=== PATIENT | female | born 1955 | race Caucasian/White ===

== ENCOUNTER 2025-04-29 09:17 | Outpatient (REF) | payer MEDICARE, SELFPAY ==
--- OUTSIDE RECORDS SUMMARY | 2025-04-29 09:41 | XMS_ITS | Data Portability ---
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 REVIEW OF PRIOR EXTERNAL NOTES/RESULTS, ORDERING OF TEST(S) CATEGORY 2. ASSESSMENT REQUIRING INDEPENDENT HISTORIAN(S) INCLUDE WHO THE HISTORIAN IS AND RELATION TO PT AND WHY PT IS UNABLE TO GIVE COMPLETE HISTORY ELEMENT 3: RISK (LOW) RISK OF COMPLICATIONS AND/OR MORBIDITY OR MORTALITY OF PATIENT MANAGEMENT PROVIDER MUST THOROUGHLY DOCUMENT ALL OF THE ELEMENTS COVERED Not available 04/03/2022 15:33:57 05/02/2023 05/02/2023 The patient denies little pleasure in activities they find enjoyable, feeling depressed, difficulties sleeping, feeling tired or having little energy, change in appetite, feeling guilty, overwhelmed or unmotivated. The patient denies suicidal ideation, thoughts of hurting themselves or others. Their mood is appropriate, they show good judgement and clear understanding of the conversation. They are orientated to time, place and person. They are not expressing any concerning thoughts or actions that would need further investigation and treatment for mental health. 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 MODERATE MUST MEET 2 OUT OF 3 ELEMENTS: PROBLEMS, DATA OR RISK ELEMENT 1: PROBLEMS ADDRESSED 1 OR MORE CHRONIC ILLNESS WITH EXACERBATION OR 2 OR MORE STABLE CHRONIC ILLNESSES OR 1 UNDIAGNOSED NEW PROBLEM OR 1 ACUTE ILLNESS W/SYMPTOMS OR 1 ACUTE COMPLICATED INJURY ELEMENT 2: DATA MUST MEET 1 OF 3 CATEGORIES CATEGORY 1: REVIEW OF PRIOR EXTERNAL NOTES, REVIEW OF RESULTS, ORDERING OF EACH TEST, ASSESSMENT REQUIRING INDEPENDENT HISTORIAN OR CATEGORY 2: INDEPENDENT INTERPRETATION OF TESTS BY ANOTHER PHYSICIAN OR SPECIALIST OR CATEGORY 3: DISCUSSION OF MGT OR TEST INTERPRETATION W/EXTERNAL PHYSICIAN OR SPECIALIST ELEMENT 3: RISK RISK OF COMPLICATIONS AND/OR MORBIDITY OR MORTALITY OF PATIENT MANAGEMENT PROVIDER MUST THOROUGHLY DOCUMENT EACH ELEMENT THAT IS COVERED Not available 11/14/2024 09:46:21 Plan of Treatment Reminders Order Date Submit Date Provider Last Modified By Organization Details Last Modified Time Details Appointments MEDICARE ANNUAL WELLNESS 2024 09:15A M DR SHAH Not available Not available Not available FOLLOW UP 2025 09:30A M DR SHAH Not available Not available Not available Lab HbA1c (hemoglob in A1c), blood 2024 025 [facility], [address] [place] [address], [id number], 11/14/2024 09:51:48 lipid panel, serum 2024 025 [facility], [address] [place] [address], [id number], 11/14/2024 09:51:48 CMP, serum or plasma 2024 025 [facility], [address] [place] [address], [address], 11/14/2024 09:51:48 CBC 2024 025 [email or web address], [address] [place] [address], [id number], 11/21/2024 08:41:01 vitamin D, 25-hydrox y, total, serum 2024 025 [facility], [address] [place] [address], [address], 11/14/2024 09:51:48 TSH, serum or plasma 2024 025 [facility], [address] [place] [address], [id number], 11/14/2024 09:51:48 uric acid, serum or plasma 2023 024 [facility], [place], [address], 10/24/2023 10:11:14 CMP, serum or plasma 2023 024 [facility], [place], [address], 10/24/2023 10:11:14 CBC w/ auto diff 2023 024 [facility], [place], [address], 10/24/2023 10:11:14 lipid panel, blood 2023 024 [facility], [place], [address], 10/24/2023 10:11:14 TSH + free T4, serum 2023 024 [facility], [place], [address], 10/24/2023 10:11:14 CMP, serum or plasma 2022 023 [facility], [place], [address], 05/02/2023 11:30:43 lipid panel, serum 2022 023 [facility], [place], [address], 05/02/2023 11:30:43 CBC w/ auto diff 2022 023 [facility], [place], [address], 05/02/2023 11:30:43 TSH + free T4, serum 2022 023 [facility], [place], [address], 05/02/2023 11:25:20 Referral orthopedi c surgeon referral 2022 023 [email or web address] 10 [facility], [address] [place] [address], [id number], 05/04/2023 08:19:09 Procedures None recorded. Surgeries None recorded. Imaging MRI, lumbar spine, w/o contrast 2022 023 [email or web address] 10 Not available 06/15/2023 14:06:33 Medication Orders rosuvasta tin 20 mg tablet 2022 023 [facility], [address], [place], [place], [id number], 05/02/2023 11:31:15 tramadol 50 mg tablet 2022 023 [facility], [address], [place], [place], [id number], 05/02/2023 11:33:27 lisinopri l 20 mg tablet 2022 023 [facility], [address], [place], [place], [id number], 05/02/2023 11:23:34 lorazepam 0.5 mg tablet 2022 023 [facility], [address] [facility] [address], [place], [place], [id number], 05/02/2023 11:33:24 levothyro xine 75 mcg tablet 2022 023 [facility], [address] [facility] [address], [place], [place], [id number], 05/02/2023 11:23:36 azithromy jessica 250 mg tablet 2021 022 [email or web address] [facility], [address] [place], [address], 04/29/2025 09:02:16 Patient TargetsNo targets recorded. Patient Instructions Encounter Date Encounter Id Patient Instructions Last Modified By Organization Details Last Modified Time 04/03/2022 [id number] Acute Sinusitis: Care Instructions Not available 04/03/2022 15:33:24 cough: care instructions Not available 04/03/2022 15:33:23 11/14/2024 [id number] prediabetes: car e instructions Not available 11/14/2024 09:50:28 hypothyroidism: care instructions Not available 11/14/2024 09:50:28 Reason for Referral Orthopedic Surgeon Referral for Degeneration of lumbar intervertebral disc prior pt, was getting injection in her lumbar spine she would like to restart Referring Physician: Noa Dye, Internal Medicine, Encounter Date: 05/02/2023 Results Created Date Observation Date Name Description Value Unit Range Abnormal Flag Note LastModifiedBy Organization Detail LastModifiedTime 08/09/2008/07/2023 MAMMO , scree safia, digit al, bilat eral No observ ation record ed. [address], [address], 08/09/2023 15:32:27 09/25/20 23 09/25/2023 MRI, lumba r spine , w/o contr ast No observ ation record ed. 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 Problems Name Problem SNOMED Code Status Onset Date Resolution Date Notes Provider Name and Address Organization Details Recorded Time Ender amanda 63791546 Active 2019 Not Available [facility] 3 09:22:12 Cough 73829787 Completed 202111/14/2024 resolved Removal Reason: resolved Song Shah DO [address] [place], [address], [facility] 5 09:47:13 Degenera tion of lumbar interver tebral disc 45657883 Active 2022 Not Available [facility] 3 09:22:12 Low back pain 026004865 Active 2022 Not Available [facility] 3 09:22:12 Uric acid level above referenc e range 28760581 Active 2023 SUHA CHAUDHARI [address] [place], [address], [facility] 4 10:08:36 Degenera tive lumbar spinal stenosis 447188490 Active 2024 Song Shah DO [address] [place], [address], [facility] 5 09:44:30 Impaired fasting glycemia 247265224 Active 2017 Not Available [facility] 3 09:22:12 Mixed hyperlip idemia 024837963 Active 2017 Not Available [facility] 3 09:22:12 Hypothyr oidism 77902051 Active 2017 Not Available [facility] 3 09:22:12 Fibromya lgia 755094336 Active 2017 Not Available [facility] 3 09:22:12 Problem Notes None recorded. Medical Equipment None Reported. Allergies Allergen ID Allergen Name Allergen Category Reaction Reaction Severity Criticality Documentation Date Start Date Code Code System Note Provider Name and Address Organization Details Recorded Time 1583 Product containin g penicilli n (product) medicatio n Not available Not available Not available 03/25/2018 69233 8001 SNOMED Magdalena vegas [facility] 8 08:29:30 1584 Bactrim medicatio n Not available Not available Not available 03/25/2018 32838 9 RxNorm Magdalena vegas [facility] 8 08:30:10 1585 tetracycl ine medicatio n Not available Not available Not available 03/25/2018 18573 [facility] 8 08:30:22 1586 aspirin medicatio n Not available Not available Not available 03/25/2018 1191 [facility] 8 08:30:37 1587 Non-stero idal anti-infl ammatory agent (product) medicatio n Not available Not available Not available 03/25/2018 52332 005 SNOMED [facility] 8 08:30:47 4183 latex environme nt,medica tion rash Not available Not available 08/31/2020 51233 91 [facility] 0 13:32:41 Medications Name Sig Start Date Stop Date Status Note LastModified by Organization Details LastModified Time celecoxib 200 mg capsule TAKE 1 CAPSULE BY MOUTH EVERY DAY active Not Available Not Available No t Available prednisone 10 mg tablet PLEASE SEE ATTACHED FOR DETAILED DIRECTION S 04/29 completed Not Available Not Available Not Available atorvastati n 10 mg tablet TAKE 1 TABLET BY MOUTH EVERY DAY. 04/29 completed Not Available Not Available Not Available azithromyci n 250 mg tablet TAKE 2 TABLETS BY MOUTH TODAY, THEN TAKE 1 TABLET DAILY FOR 4 DAYS DIRECTED 04/29 completed Not Available Not Available Not Available valacyclovi r 1 gram tablet 03/25 completed Not Available Not Available Not Available lisinopril 20 mg tablet TAKE 1 TABLET BY MOUTH EVERY DAY DIRECTED active Not Available Not Available No t Available prednisone 20 mg tablet 03/25 completed Not Available Not Available Not Available tramadol 50 mg tablet TAKE 1 TABLET BY MOUTH TWICE A DAY active Not Available Not Available No t Available levothyroxi ne 75 mcg tablet TAKE 1 TABLET BY MOUTH EVERY DAY active Not Available Not Available No t Available oxycodone-a cetaminophe n 5 mg-325 mg tablet 03/25 completed Not Available Not Available Not Available lorazepam 0.5 mg tablet TAKE 1 TABLET BY MOUTH EVERY DAY NEEDED active Not Available Not Available No t Available gemfibrozil 600 mg tablet Take 1 tablet(s) twice a day by oral route. 05/02 completed Not Available Not Available Not Available Tylenol 500 mg tablet Take 2 tablets twice a day by oral route. active Not Available Not Available No t Available fluoxetine 20 mg tablet TAKE 1 TABLET BY MOUTH EVERY DAY 05/02 completed Not Available Not Available Not Available lisinopril 10 mg tablet TAKE 1 TABLET BY MOUTH EVERY DAY 08/08 completed Not Available Not Available Not Available fluoxetine 10 mg capsule TAKE 1 CAPSULE BY MOUTH EVERY DAY 12/20 completed Not Available Not Available Not Available lorazepam 1 mg tablet 1/2 tab BID prn 09/03 completed Not Available Not Available Not Available fluoxetine 20 mg capsule TAKE 1 CAPSULE BY MOUTH EVERY DAY active Not Available Not Available No t Available cyclobenzap rine 5 mg tablet TAKE 1-2 TAB UP TO 2 TIMES A DAY NEEDED FOR MUSCLE SPASMS active Not Available Not Available No t Available rosuvastati n 20 mg tablet TAKE 1 TABLET BY MOUTH EVERY DAY active Not Available Not Available No t Available Boostrix Tdap 2.5 Lf unit-8 mcg-5 Lf/0.5 mL intramuscul ar syringe 02/19 completed Not Available Not Available Not Available magnesium active Not Available Not Marisa ilable Not Available Vitamin D active Not Available Not Marisa ilable Not Available multivitami n qd active Not Available Not Available Not Available Fluzone Quad (PF) 60 mcg (15 mcg x 4)/0.5 mL IM syringe [facility] 07/05 completed Not Available Not Available Not Available Vitals Date Recorded Body height Body mass index (BMI) Body weight Oxygen saturation Oxygen saturation in Arterial blood by Pulse oximetry Heart rate Systolic And Diastolic Provider Name and Address Organization Details Last Updated DateTime 5 157.48 cm 28.7 kg/m2 23439 g 98 % 98 % 67 /min 140/68 mm[Hg] Rosietorri Brownmond [facility] Internal [facility] 5 09:10:32 Date Recorded Body height Body mass index (BMI) Body weight Heart rate Oxygen saturation Oxygen saturation in Arterial blood by Pulse oximetry Systolic And Diastolic Provider Name and Address Organization Details Last Updated DateTime 5 157.48 cm 28.9 kg/m2 23905.5 9 g 78 /min 98 % 98 % 118/70 mm[Hg] Rosie Brownmond [facility] 5 09:04:41 Date Recorded Body height Body mass index (BMI) Body weight Oxygen saturation Oxygen saturation in Arterial blood by Pulse oximetry Heart rate Systolic And Diastolic Provider Name and Address Organization Details Last Updated DateTime 3 158.12 cm 28.5 kg/m2 29246.7 2 g 98 % 98 % 79 /min 182/92 mm[Hg] SUHA CHAUDHARI [address] [place], [address] [place] [address] 3 11:04:44 Social History Question Answer Notes LastModified by Organizat ion Details LastModified Time Tobacco Smoking Status Former Smoker Not Available [facility] 08/17/2020 03:36:24 What Was The Date Of Your Most Recent Tobacco Screening? 04/29/2025 [email or web address] Information not available 04/29/2025 Sex: Unknown Functional Status Question Answer Note LastModified by Organization D etails LastModified Time Do you or have you ever used any other forms of tobacco or nicotine? Yes [email or web address] Information not available 04/29/2025 Mental Status None recorded. Family History Nothing Reported. Medical History No medical history recorded. Gynecological HistoryNo gynecological history recorded. Obstetrics History GPAL:G 0 P 0 0 0 0 Immunizations Vaccine Type Date Status Note Provider Nam e and Address Organization Details Recorded Time COVID-19, mRNA, LNP-S, PF, 30 mcg/0.3 mL dose 1 [facility]21 13:52:45 COVID-19, mRNA, LNP-S, PF, 30 mcg/0.3 mL dose [facility] 08/03/2021 13:52:53 Influenza, split virus, quadrivalent, preservative 1 completed SUHA CHAUDHARI [address] [place], [address], [facility] Internal [facility] 08/05/2021 10:33:21 influenza, unspecified formulation 4 completed Namrata vegas, [facility] Internal [facility] 08/13/2024 11:10:09 Tdap 9 completed Ale vegas [facility] 08/31/2020 13:30:48 Tdap 9 completed Ale vegas [facility] 08/31/2020 13:30:48 Influenza, split virus, quadrivalent, preservative 0 completed Ale vegas [facility] 08/31/2020 13:30:48 Past Encounters Encounter ID Performer Location Encounter Start Date Encounter Closed Date Diagnosis/Indication Diagnosis SNOMED-CT Code Diagnosis ICD10 Code Diagnosis Note [id number] [facility] [address] [address] 03/25/2018 14:48:46 03/25/2018 17:03:08 Hypercholesterolemia 27767219 E78.00 Fibromyalgia 751249375 M 79.7 stable Hypothyroidism 54289298 E03.9 stable [id number] Song GlassSanjiv Shah [facility] [address] [place] [address] 07/31/2018 14:50:05 08/05/2018 09:19:40 Tobacco dependence syndrome 89610030 F17.200 Mixed hyperlipidemia 267 891106 E78.2 Hypothyroidism 64289302 E03.9 stable Fibromyalgia 397947200 M 79.7 stable [id number] [facility] [address] [place] [address] 09/03/2018 14:50:11 09/03/2018 16:49:55 Fibromyalgia 441184500 M79.7 new fluoxetine Mixed hyperlipidemia 267 868647 E78.2 to complete labs Hypothyroidism 84919070 E03.9 stable, await labs Fatigue 39739277 R53.83 Discussed increase exercise [id number] Song Shah [facility] [address] [facility], [place] [address] 12/04/2018 14:58:53 12/04/2018 15:53:25 Fibromyalgia 964765820 M79.7 increase fluoxetine Hypothyroidism 28720321 E03.9 stable Fatigue 64622925 R53.83 Discussed increase exercise Mixed hyperlipidemia 267 202742 E78.2 [place] [id number] Song Shah [facility] [address] [facility], [place] [address] 12/20/2018 15:10:45 12/20/2018 15:43:44 Pain of multiple joints 85794794 M25.50 negative workups in past Fibromyalgia 906109297 M 79.7 continue fluoxetine Fatigue 45954366 R53.83 nml eval & labs [id number] Song Shah [facility] [address] [facility], [place] [address] 04/30/2019 14:37:50 04/30/2019 15:09:14 Pain of multiple joints 92896723 M25.50 Fatigue 29430523 R53.83 Fibromyalgia 314267989 M 79.7 Essential hypertension 06073799 I10 stable Hypothyroidism 03682884 E03.9 [id number] Song Shah [facility] [address] [facility], [place] [address] 02/20/2020 13:29:47 02/20/2020 14:08:49 Adult health examination 389493238 Z00.00 no concerns, doing well BP 122/82, excellent today Active or passive immunization 786635598 Z23 [id number] Song Shah [facility] [address] [facility] [address] 08/31/2020 13:23:15 08/31/2020 13:57:52 Mixed hyperlipidemia 233127997 E78.2 will have her do her BW Impaired f asting glycemia 315450750 R73.01 will have her do her BW Hypothyroidism 66851282 E03.9 will have her do her BW Fibromyalgia 779811814 M 79.7 stable per patient on medication Essential hypertension 81832894 I10 BP elevated will monitor as it is not normally this high will recheck at next appt [id number] Song Shah, [facility] [address] [facility] [place] [address] 08/05/2021 10:15:37 08/05/2021 15:50:31 Weight gain 9433209 R63.5 will fu with labs and discussed other solutions Hypothyroidism 82382614 E03.9 will have her do her BW soon to see if this is contributo ry toward weight gain Essential hypertension 87446971 I10 BP elevated again today in officewill fu with home [place] [id number] Song Shah [facility] [address] [facility] [address] 04/03/2022 11:59:13 04/07/2022 08:15:56 Cough 70685649 R05.9 will treat prob sinusitis Acute sinusitis 09403904 J01.90 [id number] Song Shah [facility] [address] [facility] [place] [address] 05/02/2023 10:56:01 05/02/2023 13:56:56 Essential hypertension 03062597 I10 BP elevated again today in officewill fu with home BP readings for comparison Hypothyroidism 08577644 E03.8 BW due Impaired f asting glycemia 584555135 R73.01 will have her do her BW Mixed hyperlipidemia 267 281211 E78.2 will have her do her BW Degenerati on of lumbar intervertebral disc 24445804 M51.36 will set up with repeat MRI and with PSS again Renewal of prescription 352348058 Z76.0 refill Low back pain 942005923 M54.50 refill [id number] Song Shah [facility] [address] [facility] [place] [address] 10/24/2023 07:59:16 10/24/2023 14:01:31 Essential hypertension 36539157 I10 stable at home with increased lisinopril Hypothyroidism 81948481 E03.8 stable Fibromyalgia 601342798 M 79.7 stable per patient on medication Degenerati on of lumbar intervertebral disc 30540310 M51.36 has injection set up for Sunday Uric acid level above reference range 94030031 E79.0 needs recheck [id number] Song Shah DO [facility] [address],[place] [address] 11/14/2024 09:02:29 11/14/2024 11:35:14 Essential hypertension 91950332 I10 home bps are good running 120-130 systolicsh er anxiety will make it go up Mixed hyperlipidemia 267 350585 E78.2 will need lab Hypothyroidism 50835598 E03.8 needs the tsh done Degenerati ve lumbar spinal stenosis 189310722 M48.061 Impaired f asting glycemia 281020735 R73.01 Health Concerns Section Related Observation LastModified by Organization Detai ls LastModified Time None Recorded Concern Status LastModified by Organization Details LastModified Time None Recorded Advance Directives Directive None Recorded Payers Insurance Date Sequence Insurance Name Policy Number Policy Martinez Covered Member ID Martinez Member ID Guarantor Name 04/11/2022 1 [facility] ([facility] [id number] Gely Mumblow [id number] Gely A Mumblow 04/11/2022 1 [facility] Gely A Mumblow [id number] Gely A Mumblow 05/02/[address] [facility] (O) Gely A Mumblow [id number] Gely A Mumblow 04/11/2022 3 [facility]: [place]IC[place] BLUE (MEDICARE REPLACEMENT PPO) Gely A Mumblow [id number] Gely A Mumblow 04/11/2022 2 [facility] Gely A Mumblow [id number] Gely A Mumblow 04/26/2025 1 [facility] (MEDICARE REPLACEMENT PPO) [id number] Gely A Mumblow [id number] Gely A Mumblow Notes Date Note Type Note Provider Name a nd Address Organization Details Recorded Time 2 text/html sdvpatient is evaluated via tele/video assessment per patient consent during current pandemicbegan as a URI for the last several weeks with clear sputum now turning yellow relates that she tested covid twice and negative and family all negativeshe is having nasal congestionthen pollen bothered herbut now she is having thick purulent discharge form nasal and same coming from chest Song Shah, [address] [place], [address], [facility] 04/03/2022 15:34:05 3 text/html medication check the patient is still having more back painh/x of fibromyalgiadoes note she is aware she has gained weight but she remains very activelumbar spine and lower thoracic spinethe patient reports the patient is in her right side with sciatic down the leg with numbness and tingling adjusted her BP medicationnew script sent in needs repeat BW needs TSH levels drawns, needs new script for SUHA CHAUDHARI [address] [place], [address], [facility] 05/02/2023 11:32:38 4 text/html 3 mos f/u The patient is participating in this appointment via telemedicine communication with a phone call/video calling service ([employer])The patient consents to use of these platforms in place of an in-person appointment due to either sick symptoms the patient is presenting with or current office closure due to COVID exposure in order to keep our office staff and patients safe the patient had COVID-19 after Thanksgithe patient developed upper respiratory virus in September with lingering coughthe patient reports that the cough has mostly improved the patient still has ongoing fatigue but that is a common lingering side effect the patient is scheduled to have her injection in her lumbar spine on Sunday10/26/23the patient reports that they did suggest seeing neurosurgery for a consult, patient does not want to have surgery, will just continue with the injections is working on getting more active due for lab workset up with standing orders for the year otherwise doing well SUHA CHAUDHARI [address] [place], [id number], [facility] 10/24/2023 10:10:50 5 text/html here for rechk and is doing okno major issues other than her back but see [facility] and gets epidurals and does really well Song Shah, DO [address] [facility], [place], [id number], [facility] 11/14/2024 09:51:27 OBGyn Episode No OBEpisode recorded.
[2025-04-29 13:46] LABS: MANUAL DIFF FLAG NO
[2025-04-29 13:54] LABS: Hematocrit 37.7 % (37.0-47.0); Hemoglobin 13.0 g/dl (12.0-16.0); Imm Gran Abs Auto 0.05 X10*3/uL (0.00-0.03); Imm Gran Pct Auto 0.5 % (0.0-0.4); Lymphocytes Absolute Auto 3.4 X10*3/uL (1.2-4.9); Mean Corpuscular HGB Conc 34.5 g/dl (31.0-35.0); Mean Corpuscular Hemoglobin 31.0 pg (27.0-33.0); Mean Corpuscular Volume 90.0 fL (80.0-98.0); NRBC Abs Auto 0.000 X10*3/uL (0.0-0.012); NRBC Pct Auto 0.0 /100WBC (0.0-0.2); Platelet Count 319 X10*3/uL (160-400); Red Blood Count 4.19 X10*6/uL (4.20-5.50); White Blood Count 10.4 X10*3/uL (4.8-10.8)
[2025-04-29 14:36] LABS: Alanine Aminotransferase 23 U/L (0-31); Albumin Level 4.6 g/dL (3.5-5.0); Alkaline Phosphatase 62 U/L (39-117); Anion Gap 12 (12-20); Aspartate Amino Transferase 26 U/L (5-31); Blood Urea Nitrogen 20 mg/dL (9-16); Calcium 9.5 mg/dL (8.4-10.2); Carbon Dioxide 26 mmol/L (22-29); Chloride 103 mmol/L (96-108); Cholesterol 256 mg/dL (<200); Estimated Glomerular Filt Rate 53; HDL Cholesterol 44 mg/dL (>40); Potassium 4.4 mmol/L (3.3-5.1); Sodium 137 mmol/L (135-145); Total Protein 7.6 g/dL (6.5-8.0); Triglycerides 340 mg/dL (<150)
== END 2025-04-29 09:18 | disposition home or self-care (01) ==
LOC: HO.MANLDS 09:17
PROVIDERS: Visit Provider Internal Medicine
DX: I10 Essential (primary) hypertension (principal); E78.2 Mixed hyperlipidemia
CPT/HCPCS: 36415; 80053; 80061; 82306; 85025